=== PATIENT | female | born 1970 | race Caucasian/White ===

== ENCOUNTER → 2018-01-28 | Outpatient (CLI) | payer OTHER ==
[~2018-01-28] MED LIST: ALBU90OI INH; AMOX500 PO; BUSP5 PO; CEPH500 PO; CYCL10 PO; HYDACE10B PO; HYDACE5 PO; HYDCHL12.5 PO; HYDR1TAB94 PO; HYDROCHLOTHIAZIDE; IBUP600 PO; IBUP800 PO; LISI20 PO; LORA.5 PO; MELO7.5 PO; NAPR220; NAPR500 PO; NAPR500ERA PO; Naprosyn500 MG PO; Norco 10-325 T1 EACH PO; Norco 5-325 Ta1 EACH PO; OXYACE5T PO; PENVK500 PO; PRED20 PO; PROP10; PROP10 PO; Percocet 10-321 EACH PO; TRAM50 PO; UNKNOWN B/P MED; Ultram50 MG PO; Valium5 MG PO; Zofran Odt4 MG SL; [UNRECOGNIZED DRUG - REMARK]
[2018-02-01 08:28] LABS: Alpha Hyrdroxyalprazolam Not Detected (NOTDET); Alpha hydroxytriazolam Not Detected (NOTDET); Alprazolam Not Detected (NOTDET); Confirm Clonazepam LC/MS Not Detected (NOTDET); Confirm Flunitrazepam LC/MS Not Detected (NOTDET); Diazepam Not Detected (NOTDET); Flurazepam Not Detected (NOTDET); Midazolam Not Detected (NOTDET); Temazepam Not Detected (NOTDET)
[2018-02-01 19:17] LABS: Lorazepam >500 ng/mL (NOTDET)
== END ==
LOC: LAB SHORT 15:57 → LAB 15:57
PROVIDERS: Student in an Organized Health Care Education/Training Program
DX: Z51.81 Encounter for therapeutic drug level monitoring (principal); Z79.899 Other long term (current) drug therapy
CPT/HCPCS: G0480

== ENCOUNTER 2018-11-11 10:28 | Emergency (ER) | payer OTHER ==
[~2018-11-11] VITALS: Ht 167.6 cm; Wt 68.0 kg
[2018-11-11] MEDS ORDERED: LIDO700A20 TOP (11:52)
[2018-11-11] MEDS ORDERED: CYCL10 PO (11:52)
== END 2018-11-11 12:10 | disposition home or self-care (01) ==
LOC: ER 10:28
DX: M54.41 Lumbago with sciatica, right side (principal); I10 Essential (primary) hypertension; F17.210 Nicotine dependence, cigarettes, uncomplicated; Z88.8 Allergy status to other drugs, medicaments and biological substances; Z79.899 Other long term (current) drug therapy
CPT/HCPCS: 72170; 96372; 99283-25; J1885

== ENCOUNTER → 2019-07-19 | Outpatient (CLI) | payer OTHER ==
[~2019-07-19] MED LIST changes: +CHLO5; +LIDO700A20 TOP; +LISI5; +Motion Sickness25 M1 PO; +OMEPRAZOLE20 MG; +ONDA4ODT MM
[2019-07-19 19:44] LABS: U Amphetamine Screen DETECTED; U Barbituate Screen Not Detected; U Benzodiazapine Screen DETECTED; U Buprenorphine Screen Not Detected; U Cannabinoids Screen DETECTED; U Cocaine Screen Not Detected; U Methadone Screen Not Detected; U Methamphetamine Screen DETECTED; U Opiates Screen Not Detected; U Oxycodone Screen Not Detected; U Phencyclidine Screen Not Detected; U Propoxyphene Screen Not Detected
== END ==
LOC: LAB SHORT 17:37 → LAB 17:37
PROVIDERS: Nurse Practitioner Family
DX: Z51.81 Encounter for therapeutic drug level monitoring (principal); Z79.899 Other long term (current) drug therapy
CPT/HCPCS: G0480